=== PATIENT | male | born 1965 | race Caucasian/White ===

== ENCOUNTER → 2025-03-30 15:01 | Outpatient (CLI) | payer BC, SELFPAY ==
--- NOTE | ~2025-03-30 | XR_ITS ---
XR lumbar spine min 4V Indication: M54.32 - Sciatica, left side Comparison: None Findings: The vertebral heights are intact. No fracture or subluxation. Severe loss of disc at L5-S1. Soft tissues unremarkable Impression: No acute abnormality. Reviewed, dictated and finalized at location P. [facility]ANCER Impression: No acute abnormality.
== END ==
LOC: EXPCRAD 15:04
PROVIDERS: PCP Nurse Practitioner Family; Visit Provider Nurse Practitioner Family
DX: M54.32 Sciatica, left side (principal)
CPT/HCPCS: 72110